=== PATIENT | female | born 1935 | race Caucasian/White ===

== ENCOUNTER 2021-12-09 14:22 | Emergency (ER) | payer MEDICARE, BC ==
[~2021-12-09] VITALS: Ht 167.6 cm; Wt 80.0 kg
[2021-12-09 14:31] VITALS: BP 152/62
[2021-12-09 14:47] LABS: HEMATOCRIT 38.9 % (37.0-47.0); HEMOGLOBIN 12.4 g/dl (12.0-16.0); IMMATURE GRANULOCYTES 0.2 % (0.0-5.0); MEAN CELL VOLUME 95.1 fL CALC (80.0-100.0); MEAN CORPUSCULAR HGB 30.3 pG CALC (26.0-32.0); MEAN CORPUSCULAR HGB CONC 31.9 g/dL CAL (32.0-36.0); NEUT# 5.26 thou/uL (2.00-7.15); RED BLOOD COUNT 4.09 mill/uL (4.20-5.60); RED CELL DISTRI WIDTH 12.6 % (11.5-15.5)
[2021-12-09 15:00] VITALS: BP 149/60
[2021-12-09 15:06] LABS: ALBUMIN 3.7 g/dL (3.2-5.0); ALKALINE PHOSPHATASE 68 u/l (38-126); ANION GAP 11 (6-22 (CALC)); BILIRUBIN, TOTAL 0.3 mg/dL (0.0-1.4); BUN 20 mg/dL (8-23); BUN/CREATININE RATIO 25 (12-20 (CALC)); CARBON DIOXIDE 30 mmol/l (22-30); CHLORIDE 101 mmol/l (95-108); CREATININE 0.8 mg/dL (0.5-1.0); GFR > 60 ML/MIN (>=60 (CALC)); GFR FOR AFR.AMER. > 60 ML/MIN (>=60 (CALC)); POTASSIUM 3.8 mmol/l (3.5-5.1); SGOT/AST 23 u/l (9-36); SODIUM 138 mmol/l (137-146); TOTAL PROTEIN 6.6 g/dL (6.3-8.2)
[2021-12-09 16:29] VITALS: BP 147/63
[2021-12-09 16:31] VITALS: BP 153/57
[2021-12-09 16:54] VITALS: BP 153/57
== END 2021-12-09 17:11 | disposition home or self-care (01) ==
LOC: ED 14:22
PROVIDERS: Nurse Practitioner
DX: S80.211A Abrasion, right knee, initial encounter (principal); I10 Essential (primary) hypertension; F03.90 Unspecified dementia, unspecified severity, without behavioral disturbance, psychotic disturbance, mood disturbance, and anxiety; W01.0XXA Fall on same level from slipping, tripping and stumbling without subsequent striking against object, initial encounter; Y92.129 Unspecified place in nursing home as the place of occurrence of the external cause

== ENCOUNTER 2022-01-05 18:26 | Emergency (ER) | payer MEDICARE, BC ==
[~2022-01-05] VITALS: Ht 167.6 cm; Wt 74.5 kg
[2022-01-05] MEDS ORDERED: AMLODIPINE BESY10 MG PO (18:38)
[2022-01-05] MEDS ORDERED: GABAPENTIN800 MG PO (18:39)
[2022-01-05] MEDS ORDERED: CYMBALTA60 MG PO (18:39)
[2022-01-05] MEDS ORDERED: HYDROCHLOROT25 MG PO (18:40)
[2022-01-05] MEDS ORDERED: ATIVAN0.5 MG PO (18:41)
[2022-01-05] MEDS ORDERED: KAPSPARGO SPRIN25 MG PO (18:41)
[2022-01-05] MEDS ORDERED: CVS OMEPRAZOLE20 M1 PO (18:42)
[2022-01-05] MEDS ORDERED: VITAMIN B-121000 MCG PO (18:43)
[2022-01-05] MEDS ORDERED: VITAMIN D5000 UNI1 PO (18:44)
[2022-01-05] MEDS ORDERED: DICYCLOMINE HCL20 MG PO (18:45)
[2022-01-05 19:21] LABS: HEMATOCRIT 42.7 % (37.0-47.0); HEMOGLOBIN 13.8 g/dl (12.0-16.0); IMMATURE GRANULOCYTES 0.2 % (0.0-5.0); MEAN CELL VOLUME 94.9 fL CALC (80.0-100.0); MEAN CORPUSCULAR HGB 30.7 pG CALC (26.0-32.0); MEAN CORPUSCULAR HGB CONC 32.3 g/dL CAL (32.0-36.0); NEUT# 7.12 thou/uL (2.00-7.15); RED BLOOD COUNT 4.5 mill/uL (4.20-5.60); RED CELL DISTRI WIDTH 12.1 % (11.5-15.5)
[2022-01-05 19:36] LABS: ALBUMIN 4.1 g/dL (3.2-5.0); ANION GAP 14 (6-22 (CALC)); BUN 27 mg/dL (8-23); BUN/CREATININE RATIO 28 (12-20 (CALC)); CARBON DIOXIDE 27 mmol/l (22-30); CHLORIDE 99 mmol/l (95-108); GFR FOR AFR.AMER. > 60 ML/MIN (>=60 (CALC)); GFR OTHER RACES 53 ML/MIN (>=60 (CALC)); POTASSIUM 3.4 mmol/l (3.5-5.1); SGOT/AST 25 u/l (9-36); SODIUM 136 mmol/l (137-146); TOTAL PROTEIN 7.4 g/dL (6.3-8.2)
[2022-01-05 19:49] LABS: ALKALINE PHOSPHATASE 129 u/l (38-126); BILIRUBIN, TOTAL 0.1 mg/dL (0.0-1.4)
[2022-01-05 20:54] VITALS: BP 168/102
[2022-01-06] MEDS ORDERED: KEFLEX500 MG PO (17:06)
[2022-01-06] MEDS ORDERED: NAPROXEN500 MG PO (17:06)
== END 2022-01-05 21:19 ==
LOC: ED 18:26
PROVIDERS: Family Medicine
DX: S80.01XA Contusion of right knee, initial encounter (principal); M25.571 Pain in right ankle and joints of right foot; M25.551 Pain in right hip; R51.9 Headache, unspecified; I10 Essential (primary) hypertension; F03.90 Unspecified dementia, unspecified severity, without behavioral disturbance, psychotic disturbance, mood disturbance, and anxiety; W18.39XA Other fall on same level, initial encounter; Y92.098 Other place in other non-institutional residence as the place of occurrence of the external cause

== ENCOUNTER 2022-01-06 15:01 | Emergency (ER) | payer MEDICARE, BC ==
[~2022-01-06] VITALS: Ht 167.6 cm; Wt 79.3 kg
[~2022-01-06 15:01] MED LIST: AMLODIPINE BESY10 MG PO; ATIVAN0.5 MG PO; CVS OMEPRAZOLE20 M1 PO; CYMBALTA60 MG PO; DICYCLOMINE HCL20 MG PO; GABAPENTIN800 MG PO; HYDROCHLOROT25 MG PO; KAPSPARGO SPRIN25 MG PO; VITAMIN B-121000 MCG PO; VITAMIN D5000 UNI1 PO
[2022-01-06 15:05] VITALS: BP 156/70
[2022-01-06 15:30] VITALS: BP 141/62
[2022-01-06 15:33] LABS: HEMATOCRIT 40.8 % (37.0-47.0); HEMOGLOBIN 13.2 g/dl (12.0-16.0); IMMATURE GRANULOCYTES 0.2 % (0.0-5.0); MEAN CELL VOLUME 93.6 fL CALC (80.0-100.0); MEAN CORPUSCULAR HGB 30.3 pG CALC (26.0-32.0); MEAN CORPUSCULAR HGB CONC 32.4 g/dL CAL (32.0-36.0); NEUT# 11.76 thou/uL (2.00-7.15); RED BLOOD COUNT 4.36 mill/uL (4.20-5.60); RED CELL DISTRI WIDTH 12.2 % (11.5-15.5)
[2022-01-06 15:49] LABS: ALBUMIN 4.1 g/dL (3.2-5.0); ALKALINE PHOSPHATASE 105 u/l (38-126); ANION GAP 11 (6-22 (CALC)); BUN 23 mg/dL (8-23); BUN/CREATININE RATIO 25 (12-20 (CALC)); CARBON DIOXIDE 31 mmol/l (22-30); CHLORIDE 97 mmol/l (95-108); CREATININE 0.9 mg/dL (0.5-1.0); GFR FOR AFR.AMER. > 60 ML/MIN (>=60 (CALC)); GFR OTHER RACES 59 ML/MIN (>=60 (CALC)); POTASSIUM 3.2 mmol/l (3.5-5.1); SGOT/AST 24 u/l (9-36); SODIUM 136 mmol/l (137-146); TOTAL PROTEIN 7.4 g/dL (6.3-8.2)
[2022-01-06 15:50] LABS: BILIRUBIN, TOTAL 0.5 mg/dL (0.0-1.4)
[2022-01-06 16:00] VITALS: BP 146/65
[2022-01-06 16:31] VITALS: BP 162/69
[2022-01-06 16:33] LABS: URINE BILIRUBIN - DIPSTICK NEGATIVE (NEGATIVE); URINE BLOOD DIPSTICK NEGATIVE (NEGATIVE); URINE COLOR YELLOW; URINE GLUCOSE - DIPSTICK 100 mg/dL (NEGATIVE); URINE KETONE NEGATIVE (NEGATIVE); URINE LEUK ESTERASE NEGATIVE (NEGATIVE); URINE PROTEIN - DIPSTICK NEGATIVE (NEG-TRACE); URINE SPECIFIC GRAVITY >=1.030; URINE UROBILINOGEN - DIPSTICK 0.2 E.U./dL (0.2)
[2022-01-06 16:36] LABS: URINE NITRITE - DIPSTICK POSITIVE (Negative)
[2022-01-06 16:42] LABS: URINE BACTERIA MODERATE hpf; URINE RBC 0-2 RBC/hpf (0-5); URINE SQUAMOUS EPITHELIAL CELL FEW EPI/hpf (0-FEW)
[2022-01-06 17:01] VITALS: BP 154/95
[2022-01-06] MEDS ORDERED: NAPROXEN500 MG PO (17:06)
[2022-01-06] MEDS ORDERED: KEFLEX500 MG PO (17:06)
[2022-01-06 18:05] VITALS: BP 154/95
== END 2022-01-06 18:19 | disposition home or self-care (01) ==
LOC: ED 15:01
PROVIDERS: Emergency Medicine
DX: S82.831A Other fracture of upper and lower end of right fibula, initial encounter for closed fracture (principal); I10 Essential (primary) hypertension; F03.90 Unspecified dementia, unspecified severity, without behavioral disturbance, psychotic disturbance, mood disturbance, and anxiety; W05.0XXA Fall from non-moving wheelchair, initial encounter; Y92.099 Unspecified place in other non-institutional residence as the place of occurrence of the external cause; Z20.822 Contact with and (suspected) exposure to COVID-19

== ENCOUNTER 2022-01-10 00:54 | Emergency (ER) | payer MEDICARE, BC ==
[2022-01-10] VITALS (7 sets, daily range): BP systolic 155–184; BP diastolic 69–78
[~2022-01-10] VITALS: Ht 167.6 cm; Wt 75.0 kg
[~2022-01-10 00:54] MED LIST changes: +KEFLEX500 MG PO; +NAPROXEN500 MG PO
[2022-01-10 01:35] LABS: HEMATOCRIT 41.8 % (37.0-47.0); HEMOGLOBIN 13.4 g/dl (12.0-16.0); IMMATURE GRANULOCYTES 0.2 % (0.0-5.0); MEAN CELL VOLUME 93.1 fL CALC (80.0-100.0); MEAN CORPUSCULAR HGB 29.8 pG CALC (26.0-32.0); MEAN CORPUSCULAR HGB CONC 32.1 g/dL CAL (32.0-36.0); NEUT# 8.5 thou/uL (2.00-7.15); RED BLOOD COUNT 4.49 mill/uL (4.20-5.60); RED CELL DISTRI WIDTH 12.1 % (11.5-15.5)
[2022-01-10 01:50] LABS: ALBUMIN 3.7 g/dL (3.2-5.0); ALKALINE PHOSPHATASE 109 u/l (38-126); ANION GAP 10 (6-22 (CALC)); BILIRUBIN, TOTAL 0.5 mg/dL (0.0-1.4); BUN 22 mg/dL (8-23); BUN/CREATININE RATIO 29 (12-20 (CALC)); CARBON DIOXIDE 30 mmol/l (22-30); CHLORIDE 101 mmol/l (95-108); CREATININE 0.8 mg/dL (0.5-1.0); GFR FOR AFR.AMER. > 60 ML/MIN (>=60 (CALC)); GFR OTHER RACES > 60 ML/MIN (>=60 (CALC)); POTASSIUM 3.5 mmol/l (3.5-5.1); SGOT/AST 24 u/l (9-36); SODIUM 138 mmol/l (137-146); TOTAL PROTEIN 7.3 g/dL (6.3-8.2)
[2022-01-10 02:02] LABS: MYOGLOBIN 99 ng/mL (0 - 62)
== END 2022-01-10 03:37 | disposition home or self-care (01) ==
LOC: ED 00:54
PROVIDERS: Emergency Medicine
DX: I10 Essential (primary) hypertension (principal); F03.90 Unspecified dementia, unspecified severity, without behavioral disturbance, psychotic disturbance, mood disturbance, and anxiety; S82.831D Other fracture of upper and lower end of right fibula, subsequent encounter for closed fracture with routine healing; X58.XXXD Exposure to other specified factors, subsequent encounter

== ENCOUNTER 2022-01-20 18:15 | Observation (INO) | payer MEDICARE, BC ==
--- NOTE | 2022-01-19 23:35 | NUR ---
MEDICATED WITH HYDRALAZINE 10 MG FOR B/P CONTROL. PATIENT LYING IN BED RELAXED POSTURE
[~2022-01-20] VITALS: Ht 167.6 cm; Wt 78.0 kg
--- NOTE | 2022-01-20 18:16 | NUR ---
PATIENT TO ROOM 12 VIA EMS
--- NOTE | 2022-01-20 18:19 | NUR ---
PATIENT ROOMED VIA EMS. CONNECTED TO MONITOR AND PROVIDER BEDSIDE.
[2022-01-20 18:45] LABS: HEMOGLOBIN 12.2 g/dl (12.0-16.0); IMMATURE GRANULOCYTES 0.7 % (0.0-5.0); MEAN CELL VOLUME 92.7 fL CALC (80.0-100.0); MEAN CORPUSCULAR HGB 30.6 pG CALC (26.0-32.0); NEUT# 6.92 thou/uL (2.00-7.15); RED BLOOD COUNT 3.99 mill/uL (4.20-5.60); RED CELL DISTRI WIDTH 12.5 % (11.5-15.5)
[2022-01-20 19:05] LABS: ALBUMIN 3.7 g/dL (3.2-5.0); ALKALINE PHOSPHATASE 118 u/l (38-126); ANION GAP 8 (6-22 (CALC)); BILIRUBIN, TOTAL 0.3 mg/dL (0.0-1.4); BUN 20 mg/dL (8-23); BUN/CREATININE RATIO 22 (12-20 (CALC)); CARBON DIOXIDE 31 mmol/l (22-30); CHLORIDE 100 mmol/l (95-108); CREATININE 0.9 mg/dL (0.5-1.0); GFR FOR AFR.AMER. > 60 ML/MIN (>=60 (CALC)); GFR OTHER RACES 59 ML/MIN (>=60 (CALC)); POTASSIUM 3.7 mmol/l (3.5-5.1); SGOT/AST 26 u/l (9-36); SODIUM 136 mmol/l (137-146); TOTAL PROTEIN 6.8 g/dL (6.3-8.2)
--- NOTE | 2022-01-20 19:33 | NUR ---
DR. MCCRAY REQUEST CATH URINE SPECIMEN. 8FR CATH KIT USED PT TOLERATED WELL. SAMPLE COLLECTED AND SENT TO LAB. 430 ML CLEAR YELLOW URINE OBTAINED.
--- NOTE | 2022-01-20 19:40 | NUR ---
PT UPDATED WITH PLAN FOR ADMISSION.
[2022-01-20 20:16] LABS: URINE BILIRUBIN - DIPSTICK NEGATIVE (NEGATIVE); URINE BLOOD DIPSTICK NEGATIVE (NEGATIVE); URINE COLOR YELLOW; URINE GLUCOSE - DIPSTICK NEGATIVE (NEGATIVE); URINE KETONE NEGATIVE (NEGATIVE); URINE LEUK ESTERASE NEGATIVE (NEGATIVE); URINE NITRITE - DIPSTICK NEGATIVE (Negative); URINE PROTEIN - DIPSTICK NEGATIVE (NEG-TRACE); URINE UROBILINOGEN - DIPSTICK 0.2 E.U./dL (0.2)
[2022-01-20 20:32] VITALS: BP 181/77
--- NOTE | 2022-01-20 22:00 | NUR ---
PT REASSESED - NO CHANGE IN ASSESMENT
--- NOTE | 2022-01-20 22:04 | NUR ---
GABAPENTIN 300MG TABS AVAILABLE IN ER. CHARGE NURSE PINKY NOTIFIED. PLAN TO REPORT TO ADMIT NURSE FOR TELECOMMUNICATIONS SPECIALIST ON FLOOR.
--- NOTE | 2022-01-20 22:30 | NUR ---
Admission Note Report Given to: KRISHNA BOLANOS Transported by: Wheelchair X Stretcher Transported with: X Nurse Transporter X Patent IV O2 X Windows 7 Deployment Lead Location: ICU X MS2 TELEBOX 7 IN USE.
--- NOTE | 2022-01-20 22:35 | NUR ---
ARRIVED VIA STRETCHER TO ROOM 272 ACCOMPANIED BY NURSE BEDSIDE REPORT RECIEVED. PATIENT PLEASANT AND COOPERATIVE ORIENTED TO ROOM AND PLAN OF CARE. CARDIA MONITOR SHOW SR WITH 1ST DEEGREE AVB PODIUS BOOT PRESENT ON RIGHT LOWER EXTREMITY B/P 181/[address] PEREZ UPDATED ON CONDITION.
[2022-01-20] MEDS ORDERED: ANTI-DIARRHE2 M1 PO (23:44)
[2022-01-20] MEDS ORDERED: ZOFRAN4 MG/TAB PO (23:46)
[2022-01-21] VITALS (8 sets, daily range): BP systolic 131–185; BP diastolic 52–95
--- NOTE | 2022-01-21 02:52 | NUR ---
RESTING QUIETLY IN BED WITH EYES CLOSED NO ACUTE DISTRESS NOTED BP 143/54
--- NOTE | 2022-01-21 05:08 | NUR ---
RESTING QUIETLY IN BED NO ACUTE DISTRESS NOTED RESPIRATIONS EVEN AND UNLABORED
[2022-01-21 05:37] LABS: HEMATOCRIT 42.5 % (37.0-47.0); HEMOGLOBIN 13.7 g/dl (12.0-16.0); MEAN CELL VOLUME 93.8 fL CALC (80.0-100.0); MEAN CORPUSCULAR HGB 30.2 pG CALC (26.0-32.0); MEAN CORPUSCULAR HGB CONC 32.2 g/dL CAL (32.0-36.0); RED BLOOD COUNT 4.53 mill/uL (4.20-5.60); RED CELL DISTRI WIDTH 12.4 % (11.5-15.5)
[2022-01-21 05:54] LABS: ANION GAP 8 (6-22 (CALC)); BUN 15 mg/dL (8-23); BUN/CREATININE RATIO 22 (12-20 (CALC)); CARBON DIOXIDE 30 mmol/l (22-30); CHLORIDE 103 mmol/l (95-108); CREATININE 0.7 mg/dL (0.5-1.0); GFR FOR AFR.AMER. > 60 ML/MIN (>=60 (CALC)); GFR OTHER RACES > 60 ML/MIN (>=60 (CALC)); MAGNESIUM 1.7 mg/dL (1.6-2.3); POTASSIUM 3.8 mmol/l (3.5-5.1); SODIUM 137 mmol/l (137-146)
--- NOTE | 2022-01-21 07:00 | NUR ---
REPORT RECIEVED FROM MOSAICISTPRESIDENT + PUBLISHER
--- NOTE | 2022-01-21 07:54 | NUR ---
PT RESTINGIN BED. TELE MONITOR IN PLACE, CONTINOUS MONITORING PER ED. IV 18G LAC FLUSHED. PT IS ALERT TO SELF. UNABLLE TO STATE PLACE, TIME. REORIENTATED PT TO ROOM, CALL MAY LIGHT SYSTEM. ASSESSMENT ALLOWED. PT HAS BOOT TO THE RIGHT LEG. PT ABLE TO TOLERATE PO MEDS WELL. FALL/SAFTEY PRECAUITON IN PLACE. CALL LIGHT WITHIN REACH. BED ALARM ACTIVATED. PT STATES NO PAIN. NO DISTRESS NOTED.
--- NOTE | 2022-01-21 09:28 | NUR ---
PT AT BEDSIDE
--- NOTE | 2022-01-21 14:50 | NUR ---
PT RESTING IN ROOM. PT IS CONFUSED. ALERT TO PERSON ONLY. NO DISTRESS NOTED. TELE MONITOR IN PLACE, CONTINOUS MONITORING PER ED. IV PATENT. FALL/SAFTEY PRECAUTION IN PLACE. CALL LIGHT WITHIN REACH. BED ALARM ACTIVATED.
--- NOTE | 2022-01-21 19:10 | NUR ---
REPORT RECEIVED FROM Jatin PARK RN
--- NOTE | 2022-01-21 21:35 | NUR ---
PATIENT RESTING COMFORTABLY, DENIES ANY CURRENT NEEDS AT THIS TIME. URINAL PROVIDED PER PATIENT REQUEST. ANTIBIOTIC HUNG AT THIS TIME. CALL LIGHT AND BEDSIDE TABLE WITHIN REACH.
[2022-01-22] VITALS: BP 146/72
--- NOTE | 2022-01-22 | NUR ---
PATIENT RESTING QUIETLY, DENIES ANY NEEDS AT THIS TIME. CALL LIGHT AND BEDSIDE TABLE WITHIN REACH.
[2022-01-22 04:16] VITALS: BP 138/46
[2022-01-22 06:31] LABS: HEMATOCRIT 37.2 % (37.0-47.0); HEMOGLOBIN 12.4 g/dl (12.0-16.0); IMMATURE GRANULOCYTES 0.3 % (0.0-5.0); MEAN CELL VOLUME 91.2 fL CALC (80.0-100.0); MEAN CORPUSCULAR HGB 30.4 pG CALC (26.0-32.0); MEAN CORPUSCULAR HGB CONC 33.3 g/dL CAL (32.0-36.0); NEUT# 6.24 thou/uL (2.00-7.15); RED BLOOD COUNT 4.08 mill/uL (4.20-5.60); RED CELL DISTRI WIDTH 12.4 % (11.5-15.5)
[2022-01-22 07:10] LABS: ALBUMIN 3.2 g/dL (3.2-5.0); ALKALINE PHOSPHATASE 117 u/l (38-126); ANION GAP 9 (6-22 (CALC)); BILIRUBIN, TOTAL 0.4 mg/dL (0.0-1.4); BUN 17 mg/dL (8-23); BUN/CREATININE RATIO 23 (12-20 (CALC)); CARBON DIOXIDE 27 mmol/l (22-30); CHLORIDE 103 mmol/l (95-108); CREATININE 0.8 mg/dL (0.5-1.0); GFR FOR AFR.AMER. > 60 ML/MIN (>=60 (CALC)); GFR OTHER RACES > 60 ML/MIN (>=60 (CALC)); MAGNESIUM 1.7 mg/dL (1.6-2.3); POTASSIUM 3.8 mmol/l (3.5-5.1); SGOT/AST 23 u/l (9-36); SODIUM 135 mmol/l (137-146); TOTAL PROTEIN 5.9 g/dL (6.3-8.2)
[2022-01-22 07:21] VITALS: BP 126/46
--- NOTE | 2022-01-22 08:00 | NUR ---
PT SLEEPING UPON ENTERING ROOM. BREATHING EVEN AND UNLABORED. TELE MONITOR IN PLACE. CONTINOUS MONITORING PER ED. FALL/SAFTEY PRECAUTION IN PLACE. CALL LIGHT WITHIN REACH
--- NOTE | 2022-01-22 09:14 | NUR ---
ASSISTED PT TO BSC. PT ALERT TO PERSON. MONTH CORECT ALONG WITH DAY. STATES NO PAIN. TELE MONITOR IN PLACE, CONTINOUS MONITORING PER ED. PT HAS RIGHT BOOTIE. SPEECH IS CLEAR. IV DISLODGED UPON ASSESSMENT CATHETER FULLT INTACT. FALL/SAFTEY PRECAUTION IN PLACE. CALL LIGHT IS WITHIN REACH
[2022-01-22 11:48] VITALS: BP 162/65
--- NOTE | 2022-01-22 12:00 | NUR ---
PT RESTING IN BED. STATES NO NEEDS AT THIS TIME. FALL/SAFTEY PRECAUTION IN PLACE. CALL LIGHT WITHIN REACH
--- NOTE | 2022-01-22 13:34 | NUR ---
Discharge instructions given. Patient verbalizes understanding of same. Discharged in stable condition via Wheelchair to Home with staff. All belongings sent with pt.
== END 2022-01-22 13:34 ==
LOC: ED 18:15 → ED-I 19:33 → ED 20:06 → MS2 20:07
PROVIDERS: Family Medicine; Nurse Practitioner; ADMIT Hospitalist; ATTEND Hospitalist
DX: S00.93XA Contusion of unspecified part of head, initial encounter (principal); S82.831D Other fracture of upper and lower end of right fibula, subsequent encounter for closed fracture with routine healing; I10 Essential (primary) hypertension; F03.90 Unspecified dementia, unspecified severity, without behavioral disturbance, psychotic disturbance, mood disturbance, and anxiety; W01.0XXA Fall on same level from slipping, tripping and stumbling without subsequent striking against object, initial encounter; Y92.099 Unspecified place in other non-institutional residence as the place of occurrence of the external cause; X58.XXXD Exposure to other specified factors, subsequent encounter; Z91.81 History of falling; Z20.822 Contact with and (suspected) exposure to COVID-19
CPT/HCPCS: J1650

== ENCOUNTER 2022-08-28 04:16 | Emergency (ER) | payer MEDICARE, BC ==
[2022-08-28] VITALS (26 sets, daily range): BP systolic 147–199; BP diastolic 63–127
[~2022-08-28] VITALS: Ht 167.6 cm; Wt 73.0 kg
[~2022-08-28 04:16] MED LIST changes: +ANTI-DIARRHE2 M1 PO; +ZOFRAN4 MG/TAB PO
== END 2022-08-28 11:58 ==
LOC: ED 04:16
DX: S01.111A Laceration without foreign body of right eyelid and periocular area, initial encounter (principal); R79.81 Abnormal blood-gas level; I10 Essential (primary) hypertension; F03.90 Unspecified dementia, unspecified severity, without behavioral disturbance, psychotic disturbance, mood disturbance, and anxiety; W19.XXXA Unspecified fall, initial encounter; Y92.099 Unspecified place in other non-institutional residence as the place of occurrence of the external cause; Z91.81 History of falling

== ENCOUNTER 2023-03-29 14:48 | Emergency (ER) | payer MEDICARE, BC ==
[2023-03-29] VITALS (9 sets, daily range): BP systolic 128–165; BP diastolic 60–84
[~2023-03-29] VITALS: Ht 167.6 cm; Wt 77.0 kg
[2023-03-29 16:17] LABS: BASO% 0.9 % (0-3); EOS% 3.8 % (0-8); HEMOGLOBIN 12.5 g/dl (12.0-16.0); IMMATURE GRANULOCYTES 0.6 % (0.0-5.0); LYMPH% 30.2 % (15-41); MEAN CELL VOLUME 94.4 fL CALC (80.0-100.0); MEAN CORPUSCULAR HGB 30.3 pG CALC (26.0-32.0); MEAN CORPUSCULAR HGB CONC 32.1 g/dL CAL (32.0-36.0); MONO% 8.2 % (2-13); NEUT# 5.03 thou/uL (2.00-7.15); NEUT% 56.3 % (42-76); RED BLOOD COUNT 4.13 mill/uL (4.20-5.60); RED CELL DISTRI WIDTH 12.8 % (11.5-15.5)
[2023-03-29 16:30] LABS: ALBUMIN 3.8 g/dL (3.2-5.0); ALKALINE PHOSPHATASE 93 u/l (38-126); ANION GAP 10 (6-22 (CALC)); BILIRUBIN, TOTAL 0.3 mg/dL (0.02-1.3); BUN 22 mg/dL (8-23); BUN/CREATININE RATIO 21 (12-20 (CALC)); CARBON DIOXIDE 32 mmol/l (22-30); CHLORIDE 97 mmol/l (95-108); GFR FOR AFR.AMER. > 60 ML/MIN (>=60 (CALC)); GFR OTHER RACES 52 ML/MIN (>=60 (CALC)); POTASSIUM 3.8 mmol/l (3.5-5.1); SGOT/AST 30 u/l (9-36); SODIUM 136 mmol/l (137-146); TOTAL PROTEIN 7.3 g/dL (6.3-8.2)
[2023-03-29 17:28] LABS: URINE BILIRUBIN - DIPSTICK Negative (NEGATIVE); URINE BLOOD DIPSTICK Negative (NEGATIVE); URINE GLUCOSE - DIPSTICK Negative (NEGATIVE); URINE KETONE Negative (NEGATIVE); URINE LEUK ESTERASE Trace (NEGATIVE); URINE NITRITE - DIPSTICK Positive (Negative); URINE PH 6.5 (4.5-8.0); URINE PROTEIN - DIPSTICK Negative (NEG-TRACE); URINE SPECIFIC GRAVITY 1.015; URINE UROBILINOGEN - DIPSTICK 0.2 E.U./dL (0.2)
[2023-03-29 17:31] LABS: URINE COLOR Yellow
[2023-03-29 17:42] LABS: URINE BACTERIA FEW hpf; URINE RBC 0-2 RBC/hpf (0-5); URINE SQUAMOUS EPITHELIAL CELL FEW EPI/hpf (0-FEW)
[2023-03-29] MEDS ORDERED: OMNI-PAC300 MG PO (18:12)
== END 2023-03-29 18:30 | disposition home or self-care (01) ==
LOC: ED 14:48
PROVIDERS: Family Medicine
DX: S00.93XA Contusion of unspecified part of head, initial encounter (principal); N39.0 Urinary tract infection, site not specified; B96.20 Unspecified Escherichia coli [E. coli] as the cause of diseases classified elsewhere; I10 Essential (primary) hypertension; F03.90 Unspecified dementia, unspecified severity, without behavioral disturbance, psychotic disturbance, mood disturbance, and anxiety; W19.XXXA Unspecified fall, initial encounter; Y92.099 Unspecified place in other non-institutional residence as the place of occurrence of the external cause

== ENCOUNTER 2023-07-27 17:56 | Emergency (ER) | payer MEDICARE, BC ==
[~2023-07-27] VITALS: Ht 167.6 cm; Wt 85.9 kg
[2023-07-27] VITALS (24 sets, daily range): BP systolic 129–214; BP diastolic 64–108
[~2023-07-27 17:56] MED LIST changes: +MIRALAX17 GM PO; +NYSTATIN100000 UNI; +OMEPRAZOLE DR20 MG PO; +OMNI-PAC300 MG PO; +POT CHLORIDE10 ME5 PO; +VALSARTAN160 MG PO
[2023-07-27] MEDS ORDERED: TYLENOL500 MG PO (18:09)
[2023-07-27] MEDS ORDERED: CLONIDINE0.1 MG PO (18:10)
[2023-07-27] MEDS ORDERED: VITAMIN D325 MCG PO (18:17)
[2023-07-27 20:35] LABS: BASO% 0.4 % (0-3); EOS% 0.1 % (0-8); HEMATOCRIT 44.6 % (37.0-47.0); IMMATURE GRANULOCYTES 0.1 % (0.0-5.0); LYMPH% 12.5 % (15-41); MEAN CELL VOLUME 93.7 fL CALC (80.0-100.0); MEAN CORPUSCULAR HGB 29.4 pG CALC (26.0-32.0); MEAN CORPUSCULAR HGB CONC 31.4 g/dL CAL (32.0-36.0); MONO% 5.1 % (2-13); NEUT# 11.07 thou/uL (2.00-7.15); NEUT% 81.8 % (42-76); RED BLOOD COUNT 4.76 mill/uL (4.20-5.60); RED CELL DISTRI WIDTH 12.4 % (11.5-15.5)
[2023-07-27 21:00] LABS: ANION GAP 16 (6-22 (CALC)); BILIRUBIN, TOTAL 0.6 mg/dL (0.02-1.3); BUN 22 mg/dL (8-23); BUN/CREATININE RATIO 27 (12-20 (CALC)); CARBON DIOXIDE 25 mmol/l (22-30); CHLORIDE 98 mmol/l (95-108); CPK 27 u/l (30-135); CREATININE 0.8 mg/dL (0.5-1.0); GFR FOR AFR.AMER. > 60 ML/MIN (>=60 (CALC)); GFR OTHER RACES > 60 ML/MIN (>=60 (CALC)); POTASSIUM 4.2 mmol/l (3.5-5.1); SODIUM 135 mmol/l (137-146); TOTAL PROTEIN 7.1 g/dL (6.3-8.2)
[2023-07-27 21:01] LABS: ALKALINE PHOSPHATASE 144 u/l (38-126); SGOT/AST 57 u/l (9-36)
[2023-07-27 21:40] LABS: URINE BILIRUBIN - DIPSTICK Negative (NEGATIVE); URINE BLOOD DIPSTICK Negative (NEGATIVE); URINE GLUCOSE - DIPSTICK 100 mg/dL (NEGATIVE); URINE KETONE Negative (NEGATIVE); URINE LEUK ESTERASE Negative (NEGATIVE); URINE NITRITE - DIPSTICK Negative (Negative); URINE PROTEIN - DIPSTICK 100 mg/dL (NEG-TRACE); URINE UROBILINOGEN - DIPSTICK 0.2 E.U./dL (0.2)
[2023-07-27 21:42] LABS: URINE BACTERIA MANY hpf; URINE COLOR Yellow; URINE RBC 0-2 RBC/hpf (0-5); URINE SQUAMOUS EPITHELIAL CELL FEW EPI/hpf (0-FEW); URINE WBC 0-2 WBC/hpf (0-5)
== END 2023-07-27 23:21 | disposition home or self-care (01) ==
LOC: ED 17:56
PROVIDERS: Internal Medicine
DX: M54.50 Low back pain, unspecified (principal); M48.061 Spinal stenosis, lumbar region without neurogenic claudication; F03.90 Unspecified dementia, unspecified severity, without behavioral disturbance, psychotic disturbance, mood disturbance, and anxiety; I10 Essential (primary) hypertension; E11.9 Type 2 diabetes mellitus without complications; I25.10 Atherosclerotic heart disease of native coronary artery without angina pectoris; K21.9 Gastro-esophageal reflux disease without esophagitis

== ENCOUNTER 2024-02-17 08:53 | Emergency (ER) | payer MEDICARE, BC ==
[2024-02-17] VITALS (25 sets, daily range): BP systolic 125–210; BP diastolic 58–138
[~2024-02-17] VITALS: Ht 167.6 cm; Wt 88.5 kg
[~2024-02-17 08:53] MED LIST changes: +CLONIDINE0.1 MG PO; +TYLENOL500 MG PO; +VITAMIN D325 MCG PO
[2024-02-17] MEDS ORDERED: METOPROLOL SUCC50 MG PO (09:19)
[2024-02-17 10:05] LABS: BASO% 0.5 % (0-3); EOS% 0.7 % (0-8); HEMATOCRIT 42.3 % (37.0-47.0); HEMOGLOBIN 13.8 g/dl (12.0-16.0); IMMATURE GRANULOCYTES 0.3 % (0.0-5.0); LYMPH% 13.3 % (15-41); MEAN CELL VOLUME 90.8 fL CALC (80.0-100.0); MEAN CORPUSCULAR HGB 29.6 pG CALC (26.0-32.0); MEAN CORPUSCULAR HGB CONC 32.6 g/dL CAL (32.0-36.0); MONO% 5.4 % (2-13); NEUT# 9.19 thou/uL (2.00-7.15); NEUT% 79.8 % (42-76); RED BLOOD COUNT 4.66 mill/uL (4.20-5.60); RED CELL DISTRI WIDTH 12.6 % (11.5-15.5)
[2024-02-17 10:36] LABS: ALBUMIN 4.1 g/dL (3.2-5.0); BILIRUBIN, TOTAL 0.7 mg/dL (0.02-1.3); CREATININE 1.1 mg/dL (0.5-1.0); POTASSIUM 3.7 mmol/l (3.5-5.1); TOTAL PROTEIN 7.4 g/dL (6.3-8.2)
[2024-02-17] MEDS ORDERED: SODIUM CHLORIDE 0.9% 500 ML IV ONE (11:05)
[2024-02-17] MEDS ORDERED: INSULIN REGULAR (HUMAN) 100 UNIT/ML INJ IV ONE (11:05)
[2024-02-17 13:59] LABS: URINE BILIRUBIN - DIPSTICK Negative (NEGATIVE); URINE BLOOD DIPSTICK Trace-intact (NEGATIVE); URINE GLUCOSE - DIPSTICK 500 mg/dL (NEGATIVE); URINE KETONE Negative (NEGATIVE); URINE LEUK ESTERASE Trace (NEGATIVE); URINE PROTEIN - DIPSTICK 30 mg/dL (NEG-TRACE); URINE UROBILINOGEN - DIPSTICK 0.2 E.U./dL (0.2)
[2024-02-17 14:00] LABS: URINE COLOR Yellow; URINE NITRITE - DIPSTICK Positive (Negative)
[2024-02-17 14:01] LABS: URINE BACTERIA MANY hpf; URINE EPITHELIAL CELLS FEW EPI/hpf (0-FEW); URINE MUCUS MANY hpf (NONE-FEW); URINE RBC 0-2 RBC/hpf (0-5); URINE WBC 20-50 WBC/hpf (0-5)
[2024-02-17] MEDS ORDERED: cefTRIAXone SODIUM 2 GM in SODIUM CHLORIDE 0.9% 100 ML IV ONE (14:10)
[2024-02-17] MEDS ORDERED: KEFLEX500 MG PO (14:14)
[2024-02-17] MEDS ORDERED: ENALAPRILAT 1.25 MG/ML 1ML IV ONE (15:35)
== END 2024-02-17 15:54 | disposition home or self-care (01) ==
LOC: ED 08:53
PROVIDERS: Emergency Medicine
DX: N39.0 Urinary tract infection, site not specified (principal); I10 Essential (primary) hypertension; E11.9 Type 2 diabetes mellitus without complications; I25.10 Atherosclerotic heart disease of native coronary artery without angina pectoris; K21.9 Gastro-esophageal reflux disease without esophagitis; F03.90 Unspecified dementia, unspecified severity, without behavioral disturbance, psychotic disturbance, mood disturbance, and anxiety